=== PATIENT | male | born 1985 | race Caucasian/White ===

== ENCOUNTER 2018-03-17 11:09 | Emergency (ER) | payer OTHER ==
[~2018-03-17] VITALS: Ht 175.3 cm; Wt 86.4 kg
[2018-03-17 11:29] VITALS: BP 137/84
[2018-03-17] MEDS ORDERED: ANTIBIOTIC PO (11:39)
[2018-03-17] MEDS ORDERED: BACITRACIN 0.9 GM PACKET OINTMENT TP ONE (16:30)
== END 2018-03-17 16:32 | disposition home or self-care (01) ==
LOC: EDBD 11:11 → EMS 11:11
DX: S81.802A Unspecified open wound, left lower leg, initial encounter (principal); S41.002A Unspecified open wound of left shoulder, initial encounter; Z86.14 Personal history of Methicillin resistant Staphylococcus aureus infection; Z79.2 Long term (current) use of antibiotics; X58.XXXA Exposure to other specified factors, initial encounter; Y93.89 Activity, other specified; Y92.89 Other specified places as the place of occurrence of the external cause; Y99.8 Other external cause status
CPT/HCPCS: 99283